=== PATIENT | male | born 1940 | race Caucasian/White ===

== ENCOUNTER 2020-12-14 13:35 | Emergency (ER) | payer MEDICARE, BC ==
[2020-12-14] MEDS ORDERED: SODIUM CHLORIDE 0.9% 500 ML 500 ML IV ONE (14:33)
[2020-12-14 15:20] LABS: Basophils # (A) 0.1 k/uL (0-0.2); Basophils % (A) 1 %; Eosinophils # (A) 0.3 k/uL (0-0.7); Eosinophils % (A) 5 %; HCT 51.6 % (39.0-53.0); Lymphocytes # (A) 1.3 k/uL (1.0-4.8); Lymphocytes % (A) 24 %; MCH 32.7 pg (25.0-35.0); MCHC 34.9 g/dL (31.0-37.0); MCV 93.7 fL (80.0-100.0); Mean Platelet Volume 8.5; Monocytes # (A) 0.6 k/uL (0-1.0); Monocytes % (A) 10 %; Neutrophils # (A) 3.1 k/uL (1.3-7.7); Neutrophils % (A) 57 %; Platelet Count 129 k/uL (150-450); RDW 12.5 % (11.5-15.5); WBC 5.4 k/uL (3.8-10.6)
[2020-12-14 15:24] LABS: Appearance,Urine Clear (Clear); Bilirubin,Urine Negative (Negative); Blood,Urine Negative (Negative); Color,Urine Light Yellow; Glucose,Urine (UA) 3+ (Negative); Ketones,Urine Negative (Negative); Leukocyte Esterase,Urine Negative (Negative); Nitrite,Urine Negative (Negative); Protein,Urine Negative (Negative); Specific Gravity,Urine 1.016 (1.001-1.035); Urobilinogen,Urine <2.0 mg/dL (<2.0)
--- NOTE | 2020-12-14 15:28 | ED ---
Altered Mental Status HPI - General Source: patient, family Mode of arrival: ambulatory Limitations: no limitations <Ofelia Garcia - Last Filed: 12/14/20 16:51> <Lori Zimmerman - Last Filed: 12/25/20 17:35> - General Chief Complaint: Altered Mental Status Stated Complaint: Confusion Time Seen by Provider: 12/14/20 14:16 - History of Present Illness Initial Comments: 80 year-old male patient with past history significant for hypertension, CVA, Alzheimer's, and Diabetes, presents to the emergency department for evaluation of "just not feeling right". States he cannot explain how he was feeling. States that it was like he "wasn't there". reports patient has history of Alzheimers. States she feels it is worsening. Has trouble with memory. States his speech is becoming more slurred. She states she did not notice anything different today. Patient denies any headache, blurred vision, double vision, c hest pain, shortness of breath, dizziness, weakness, nausea, or vomiting. Does take his medications as directed. Denies any recent head injury. No new medications. Currently feeling well. Patient denies any recent rash, fever, chills, cough, abdominal pain, diarrhea, constipation, back pain, numbness, tingling, hematuria, dysuria, urinary urgency, urinary frequency, or any other complaints. (Ofelia Garcia) - Related Data Allergies Allergy/AdvReac Type Severity Reaction Status Date / Time No Known Allergies Allergy Verified 12/14/20 13:43 Review of Systems ROS Other: All systems not noted in ROS Statement are negative. <Ofelia Garcia - Last Filed: 12/14/20 16:51> ROS Other: All systems not noted in ROS Statement are negative. <Lori Zimmerman - Last Filed: 12/25/20 17:35> ROS Statement: Those systems with pertinent positive or pertinent negative responses have been documented in the HPI. Past Medical History Past Medical History: CVA/TIA, Diabetes Mellitus, Hypertension Additional Past Medical History / Comment(s): Alzeimers, History of Any Multi-Drug Resistant Organisms: None Reported Past Surgical History: Joint Replacement, Orthopedic Surgery Past Psychological History: No Psychological Hx Reported Smoking Status: Never smoker Past Alcohol Use History: Daily Past Drug Use History: None Reported <Ofelia Garcia - Last Filed: 12/14/20 16:51> General Exam Limitations: no limitations General appearance: alert, in no apparent distress, other (This is a well-developed, well-nourished adult male patient in no acute distress. Vital signs upon presentation are temperature 97.5F, pulse 87, respirations 20, blood pressure 146/98, pulse ox 96% on room air.) Eye exam: Present: normal appearance, PERRL, EOMI. Absent: scleral icterus, conjunctival injection, periorbital swelling ENT exam: Present: normal exam, normal oropharynx, mucous membranes moist Respiratory exam: Present: normal lung sounds bilaterally. Absent: respiratory distress, wheezes, rales, rhonchi, stridor Cardiovascular Exam: Present: bradycardia, irregular rhythm, normal heart sounds. Absent: systolic murmur, diastolic murmur, rubs, gallop, clicks GI/Abdominal exam: Present: soft, normal bowel sounds. Absent: distended, tenderness, guarding, rebound, rigid Neurological exam: Present: alert, CN II-XII intact. Absent: oriented X3 (orien marcelo x2) Psychiatric exam: Present: normal affect, normal mood Skin exam: Present: warm, dry, intact, normal color. Absent: rash <Ofelia Garcia - Last Filed: 12/14/20 16:51> Course Vital Signs 12/14/20 12/14/20 13:40 17:11 Temperature 97.5 F L 97.9 F Pulse Rate 87 72 Respiratory 20 16 Rate Blood Pressure 146/98 155/84 O2 Sat by Pulse 96 96 Oximetry Medical Decision Making - Lab Data Result diagrams: 12/14/20 15:06 12/14/20 15:06 - EKG Data -: EKG Interpreted by Nc - Radiology Data Radiology results: report reviewed, image reviewed <Ofelia Garcia - Last Filed: 12/14/20 16:51> - Lab Data Result diagrams: 12/14/20 15:06 12/14/20 15:06 <Lori Zimmerman - Last Filed: 12/25/20 17:35> - Medical Decision Making 80-year-old male patient presents to the emergency department today for evaluation after having an episode where he just didn't feel right. Patient can't describe any specific symptoms. He does have history of Alzheimer's with no acute changes to his mentation per his who is primary caregiver and historian. Physical examination is unremarkable. He is neurologically intact with no focal deficits. Alert and oriented 2 which is baseline. Labs reviewed and did reveal a mildly elevated BUN and creatinine. Urinalysis shows no sign of infection. Blood sugar was mildly elevated. EKG was obtained and did show, sinus rhythm with second-degree AV block type I, repeat showed the same. does not report any history of this. They'll be discharged to follow-up with the regional coordinator for further evaluation as soon as possible. They're given recommendation. Instructed to follow-up with the primary care physician for recheck in 1-2 days. Return parameters were discussed in detail. They verbalize understanding and agree with this plan. Case discussed with my attending Dr. Zimmerman. (Ofelia Garcia) I was available for consultation in the emergency department. The history and physical exam were done by the midlevel provider. I was consulted for this patients care. I reviewed the case with the midlevel provider and based on their presentation of the patient, I agree with the assessment, medical decision making and plan of care as documented. Chart was dictated using [employer] dictation software. Attempts were made to correct any dictation errors however some typographical errors may persist. Patient was seen during a national state of emergency due to the Covid-19 pandemic. (Lori Zimmerman) - Lab Data Lab Results 12/14/20 12/14/20 12/14/20 Range/Units 15:06 15:06 15:06 WBC 5.4 (3.8-10.6) k/uL RBC 5.50 (4.30-5.90) m/uL Hgb 18.0 H (13.0-17.5) gm/dL Hct 51.6 (39.0-53.0) % MCV 93.7 (80.0-100.0) fL MCH 32.7 (25.0-35.0) pg MCHC 34.9 (31.0-37.0) g/dL RDW 12.5 (11.5-15.5) % Plt Count 129 L (150-450) k/uL MPV 8.5 Neutrophils % 57 % Lymphocytes % 24 % Monocytes % 10 % Eosinophils % 5 % Basophils % 1 % Neutrophils # 3.1 (1.3-7.7) k/uL Lymphocytes # 1.3 (1.0-4.8) k/uL Monocytes # 0.6 (0-1.0) k/uL Eosinophils # 0.3 (0-0.7) k/uL Basophils # 0.1 (0-0.2) k/uL PT 9.8 (9.0-12.0) sec INR 0.9 (<1.2) APTT 23.1 (22.0-30.0) sec Sodium (137-145) mmol/L Potassium (3.5-5.1) mmol/L Chloride (98-107) mmol/L Carbon Dioxide (22-30) mmol/L Anion Gap mmol/L BUN (9-20) mg/dL Creatinine (0.66-1.25) mg/dL Est GFR (CKD-EPI)AfAm (>60 ml/min/1.73 sqM) Est GFR (CKD-EPI)NonAf (>60 ml/min/1.73 sqM) Glucose (74-99) mg/dL Calcium (8.4-10.2) mg/dL Total Bilirubin (0.2-1.3) mg/dL AST (17-59) U/L ALT (4-49) U/L Alkaline Phosphatase (38-126) U/L Troponin I (0.000-0.034) ng/mL Total Protein (6.3-8.2) g/dL Albumin (3.5-5.0) g/dL Urine Color Light Yellow Urine Appearance Clear (Clear) Urine pH 6.0 (5.0-8.0) Ur Specific [place] 1.016 (1.001-1.035) Urine Protein Negative (Negative) Urine Glucose (UA) 3+ H (Negative) Urine Ketones Negative (Negative) Urine Blood Negative (Negative) Urine Nitrite Negative (Negative) Urine Bilirubin Negative (Negative) Urine Urobilinogen <2.0 (<2.0) mg/dL Ur Leukocyte Esterase Negative (Negative) Urine Opiates Screen Not Detected (NotDetected) Ur Oxycodone Screen Not Detected (NotDetected) Urine Methadone Screen Not Detected (NotDetected) Ur Propoxyphene Screen Not Detected (NotDetected) Ur Barbiturates Screen Not Detected (NotDetected) U Tricyclic Antidepress Not Detected (NotDetected) Ur Phencyclidine Scrn Not Detected (NotDetected) Ur Amphetamines Screen Not Detected (NotDetected) U Methamphetamines Scrn Not Detected (NotDetected) U Benzodiazepines Scrn Not Detected (NotDetected) Urine Cocaine Screen Not Detected (NotDetected) U Marijuana (THC) Screen Not Detected (NotDetected) 12/14/20 12/14/20 Range/Units 15:06 15:06 WBC (3.8-10.6) k/uL RBC (4.30-5.90) m/uL Hgb (13.0-17.5) gm/dL Hct (39.0-53.0) % MCV (80.0-100.0) fL MCH (25.0-35.0) pg MCHC (31.0-37.0) g/dL RDW (11.5-15.5) % Plt Count (150-450) k/uL MPV Neutrophils % % Lymphocytes % % Monocytes % % Eosinophils % % Basophils % % Neutrophils # (1.3-7.7) k/uL Lymphocytes # (1.0-4.8) k/uL Monocytes # (0-1.0) k/uL Eosinophils # (0-0.7) k/uL Basophils # (0-0.2) k/uL PT (9.0-12.0) sec INR (<1.2) APTT (22.0-30.0) sec Sodium 135 L (137-145) mmol/L Potassium 4.6 (3.5-5.1) mmol/L Chloride 99 (98-107) mmol/L Carbon Dioxide 29 (22-30) mmol/L Anion Gap 7 mmol/L BUN 21 H (9-20) mg/dL Creatinine 1.31 H (0.66-1.25) mg/dL Est GFR (CKD-EPI)AfAm 60 (>60 ml/min/1.73 sqM) Est GFR (CKD-EPI)NonAf 52 (>60 ml/min/1.73 sqM) Glucose 264 H (74-99) mg/dL Calcium 10.0 (8.4-10.2) mg/dL Total Bilirubin 0.7 (0.2-1.3) mg/dL AST 36 (17-59) U/L ALT 44 (4-49) U/L Alkaline Phosphatase 125 (38-126) U/L Troponin I <0.012 (0.000-0.034) ng/mL Total Protein 7.8 (6.3-8.2) g/dL Albumin 4.3 (3.5-5.0) g/dL Urine Color Urine Appearance (Clear) Urine pH (5.0-8.0) Ur Specific [place] (1.001-1.035) Urine Protein (Negative) Urine Glucose (UA) (Negative) Urine Ketones (Negative) Urine Blood (Negative) Urine Nitrite (Negative) Urine Bilirubin (Negative) Urine Urobilinogen (<2.0) mg/dL Ur Leukocyte Esterase (Negative) Urine Opiates Screen (NotDetected) Ur Oxycodone Screen (NotDetected) Urine Methadone Screen (NotDetected) Ur Propoxyphene Screen (NotDetected) Ur Barbiturates Screen (NotDetected) U Tricyclic Antidepress (NotDetected) Ur Phencyclidine Scrn (NotDetected) Ur Amphetamines Screen (NotDetected) U Methamphetamines Scrn (NotDetected) U Benzodiazepines Scrn (NotDetected) Urine Cocaine Screen (NotDetected) U Marijuana (THC) Screen (NotDetected) - EKG Data EKG Comments: EKG #1 obtained at 1449 shows normal sinus rhythm with 2nd Degree AV block Type 1 with a rate of 60, variable CT interval, QRS duration 90, QT 458, QTC 458. No evidence of ST elevation or depression. EKG #2 obtained at 1448 shows normal sinus rhythm with 2nd Degree AV block Type 2 with rate of 63, variable CT interval, QRS duration 90, QT 472, QTC 483. No ST elevation or depression. (Ofelia Garcia) - Radiology Data Two-view x-ray of the chest is obtained. Report was reviewed in its entirety. Impression by Dr. Duarte shows no acute cardio pulmonary process. Suspect some underlying scarring or interstitial changes within the lungs. CT brain without contrast was obtained. Report was reviewed in its entirety. Impression by Dr. Caraballo shows atrophy with chronic-appearing periventricular white matter ischemic changes. (Ofelia Garcia) Disposition Is patient prescribed a controlled substance at d/c from ED?: No Time of Disposition: 16:47 <Ofelia Garcia - Last Filed: 12/14/20 16:51> <Lori Zimmerman - Last Filed: 12/25/20 17:35> Clinical Impression: Confusion, Atrioventricular block, Mobitz type 1, Wenckebach Disposition: HOME SELF-CARE Condition: Good Instructions (If sedation given, give patient instructions): Heart Block (ED), Altered Mental Status (ED) Additional Instructions: Follow up with regional coordinator for further evaluation as soon as possible. Follow up with primary care physician for recheck in 1-2 days. Return to the emergency department for any new, worsening, or concerning symptoms. Referrals: Ulysses Worley DO [Primary Care Provider] - 1-2 days Daquan Helm MD [STAFF PHYSICIAN] - 1-2 days
[2020-12-14 15:29] LABS: INR 0.9 (<1.2); Partial Thromboplastin Time 23.1 sec (22.0-30.0); Prothrombin Time 9.8 sec (9.0-12.0)
[2020-12-14 15:32] LABS: Albumin 4.3 g/dL (3.5-5.0); Potassium 4.6 mmol/L (3.5-5.1); Total Bilirubin 0.7 mg/dL (0.2-1.3); Total Protein 7.8 g/dL (6.3-8.2)
[2020-12-14 15:36] LABS: Amphetamine Screen,Urine Not Detected (NotDetected); Barbiturate Screen,Urine Not Detected (NotDetected); Benzodiazepines Screen,Urine Not Detected (NotDetected); Cocaine Screen,Urine Not Detected (NotDetected); Methadone Screen, Urine Not Detected (NotDetected); Opiate Screen,Urine Not Detected (NotDetected); Oxycodone Screen, Urine Not Detected (NotDetected); Phencyclidine Screen,Urine Not Detected (NotDetected); Tricyclic Antidepressant,Urine Not Detected (NotDetected); Urn Cannabinoid Scrn Not Detected (NotDetected)
--- NOTE | 2020-12-14 15:41 | XR ---
EXAMINATION TYPE: XR chest 2V DATE OF EXAM: 12/14/2020 COMPARISON: NONE HISTORY: Altered mental status TECHNIQUE: Frontal and lateral views of the chest are obtained. FINDINGS: There is no focal air space opacity, pleural effusion, or pneumothorax seen. The cardiac silhouette size is within normal limits. The aorta is dense and tortuous, possibly ectatic. There are overlying leads. Strand-like increased densities are scattered within the lungs. Thoracic spondylosi s is noted. The osseous structures are intact. IMPRESSION: No acute cardiopulmonary process. Suspect some underlying scarring or interstitial lenz es within the lungs.
--- NOTE | 2020-12-14 16:05 | CT ---
EXAMINATION TYPE: CT brain wo con DATE OF EXAM: 12/14/2020 COMPARISON: None INDICATION: Altered mental status DLP: 1202.4 mGycm, Automated exposure control for dose reduction was used. CONTRAST: None CT of the brain is performed utilizing 3 mm thick sections through the posterior fossa and 3 mm thick sections through the remaining calvarium. Study is performed within 24 hours of arrival to the hosp [facility]. No abnormal hyperdensity is present to suggest an acute intracranial hemorrhage. No mass lesion is evident. No acute infarcts are evident. Periventricular confluent white matter changes are present, likely chr onic. Ventricles and sulci appear appropriate for the patient's age. Ventricles and sulci are appropriate for the patient age. Paranasal sinuses and mastoid air cells within the [id number] are clear. IMPRESSIONS: 1. Atrophy with chronic appearing periventricular white matter ischemic changes.
[2020-12-14 17:16] VITALS: BP 155/84; PULSE 72; RESP 16; TEMP 97.9
== END 2020-12-14 17:50 | disposition home or self-care (01) ==
LOC: EC 13:35
DX: R41.0 Disorientation, unspecified (principal); I44.1 Atrioventricular block, second degree; G30.9 Alzheimer's disease, unspecified; F02.80 Dementia in other diseases classified elsewhere, unspecified severity, without behavioral disturbance, psychotic disturbance, mood disturbance, and anxiety; I10 Essential (primary) hypertension; E11.9 Type 2 diabetes mellitus without complications; Z86.73 Personal history of transient ischemic attack (TIA), and cerebral infarction without residual deficits
CPT/HCPCS: 36415; 70450; 71046; 80053; 80306; 81003; 84484; 85025; 85610; 85730; 93005; 96360; 96361; 99285

== ENCOUNTER → 2020-12-22 | Outpatient (CLI) | payer MEDICARE, BC ==
[2020-12-23 00:05] LABS: T4, Free (Free Thyroxine) 1.1 ng/dL (0.80-1.80)
== END | disposition home or self-care (01) ==
LOC: LABWHC1 14:50
PROVIDERS: ATTEND Internal Medicine Interventional Cardiology
DX: I48.91 Unspecified atrial fibrillation (principal)
CPT/HCPCS: 36415; 84439; 84443